=== PATIENT | male | born 1980 | race Caucasian/White ===

== ENCOUNTER 2021-08-28 04:58 | Emergency (ER) | payer MEDICAID ==
[~2021-08-28] VITALS: Ht 170.2 cm; Wt 79.0 kg
[2021-08-28 05:03] VITALS: BP 152/85
== END 2021-08-28 06:02 | disposition home or self-care (01) ==
LOC: ER 04:59
DX: S93.401A Sprain of unspecified ligament of right ankle, initial encounter (principal); Z60.2 Problems related to living alone; Z59.00 Homelessness unspecified; Z56.0 Unemployment, unspecified; X50.1XXA Overexertion from prolonged static or awkward postures, initial encounter; Y93.89 Activity, other specified; Y92.89 Other specified places as the place of occurrence of the external cause; Y99.8 Other external cause status
CPT/HCPCS: 29515; 73610; 73630; 99284; L1930

== ENCOUNTER 2021-11-04 19:48 | Emergency (ER) | payer MEDICAID ==
[~2021-11-04] VITALS: Ht 170.2 cm; Wt 91.8 kg
[2021-11-04 20:13] VITALS: BP 154/99
== END 2021-11-05 01:25 | disposition left against medical advice (07) ==
LOC: ER 19:49
DX: R30.9 Painful micturition, unspecified (principal); Z53.21 Procedure and treatment not carried out due to patient leaving prior to being seen by health care provider

== ENCOUNTER 2021-12-05 03:39 | Emergency (ER) | payer MEDICAID ==
[~2021-12-05] VITALS: Ht 170.2 cm; Wt 80.8 kg
[2021-12-05 03:43] VITALS: BP 158/93
[2021-12-05] MEDS ORDERED: CefTRIAXone 1000mg IM Kit (w/lidocaine diluent) IM ONE (04:10)
[2021-12-05] MEDS ORDERED: DOXY100C76 PO (04:19)
== END 2021-12-05 04:33 | disposition home or self-care (01) ==
LOC: ER 03:40
DX: Z11.3 Encounter for screening for infections with a predominantly sexual mode of transmission (principal); F17.200 Nicotine dependence, unspecified, uncomplicated; R30.0 Dysuria; R36.9 Urethral discharge, unspecified; Z59.00 Homelessness unspecified; Z56.0 Unemployment, unspecified
CPT/HCPCS: 36415; 87491; 87591; 96372; 99283; J0696; 86592

== ENCOUNTER 2021-12-31 02:07 | Emergency (ER) | payer MEDICAID ==
[~2021-12-31] VITALS: Ht 170.2 cm; Wt 83.1 kg
[2021-12-31 02:08] VITALS: BP 142/90
[2021-12-31] MEDS ORDERED: TETanus/Pertussis (Acell)/Diphther VAC/PF (Tdap-Adult) 0.5ml syringe IMVAC ONE (02:35)
[2021-12-31] MEDS ORDERED: LIDOcaine 1% W/epiNEPHrine 1:200,000 10ml vial IJ ONE (02:35)
[2021-12-31] MEDS ORDERED: LIDOcaine 1% w/EPI 1:100,000 30ml vial (MDV) IJ ONE (02:40)
[2021-12-31] MEDS ORDERED: LIDOcaine 1% 30ml preserv. free vial IJ ONE (02:45)
[2021-12-31] MEDS ORDERED: LIDOcaine 1%/PF 5ML 10 MG/ML VIAL IJ ONE (02:50)
[2021-12-31] MEDS ORDERED: CEPH-585 PO (03:37)
[2021-12-31] MEDS ORDERED: cephalexin 250mg capsule PO ONE (03:40)
== END 2021-12-31 04:13 | disposition home or self-care (01) ==
LOC: ER 02:07
DX: S61.212A Laceration without foreign body of right middle finger without damage to nail, initial encounter (principal); F17.210 Nicotine dependence, cigarettes, uncomplicated; Z86.2 Personal history of diseases of the blood and blood-forming organs and certain disorders involving the immune mechanism; Z60.2 Problems related to living alone; Z59.00 Homelessness unspecified; Z56.0 Unemployment, unspecified; Z79.2 Long term (current) use of antibiotics; X58.XXXA Exposure to other specified factors, initial encounter; Y93.89 Activity, other specified; Y92.89 Other specified places as the place of occurrence of the external cause; Y99.8 Other external cause status
CPT/HCPCS: 12001; 73130; 90471; 90715; 99283